=== PATIENT | male | born 1935 | race Caucasian/White ===

== ENCOUNTER 2016-07-30 16:04 | Inpatient (IN) | payer MEDICARE, OTHER ==
--- NOTE | ~2016-07-30 | EKG ---
PATIENT: BEAR PRUITT UNIT #: [id number] Ventricular Rate: 101 BPM Atrial Rate: 101 BPM P-R Interval: 202 ms QRS Duration: 62 ms Q-T Interval: 320 ms QTC Calculation(Bezet): 414 ms P [place]: 91 degrees Calculated R [place]: 70 degrees Calculated T [place]: 70 degrees Diagnosis Line: Sinus tachycardia with Premature atrial complexes Diagnosis Line: Nonspecific ST abnormality Diagnosis Line: Abnormal ECG Diagnosis Line: When compared with ECG of 31-JAN-2016 08:36, Diagnosis Line: Premature atrial complexes are now Present Diagnosis Line: MI interval has decreased Diagnosis Line: Confirmed by SANTANA GONZALEZ MD ([id number]) on 07/30/2016 Diagnosis Line: 11:07:12 PM INTERPRETING MD: LISA TINEO
--- NOTE | ~2016-07-30 | HP ---
Unit #: [id number] #: [id number] Patient: BEAR PRUITT [id number] [address] [place], [place] [address] [id number] I MR#: [id number] NAME: BEAR PRUITT. ROOM: 12594 Age: 81 Sex: M Admission Date: 07/30/2016 : 1935 Attending Physician: Adriana Dave M.D. Primary Care Physician: Grant Wright M.D. HISTORY AND PHYSICAL CHIEF COMPLAINT Short of air. HISTORY OF PRESENT ILLNESS The patient is an 81-year-old male with a past medical history of chronic respiratory failure, COPD, hypertension, hyperlipidemia, peripheral vascular disease, and GERD, who presented to the emergency department for evaluation of the above. The patient states that he has had a one-month history of increasing shortness of breath and productive cough. He denies any fever or chills and no chest pain. He has had decreased appetite. He reports loose stool within the past 24 hours but denies any abdominal pain and no vomiting. He states that he has gained around five pounds over the past two months. He states that he has not had good eating habits. He was started on chronic prednisone (10 mg daily) by Dr. Bass with Pain Management regarding his chronic back pain. Otherwise, there has been no change in his medications. Upon arrival in the emergency department, the patient's pulse and blood pressure were 106 and 128/85, respectively, and oxygen saturation 91% on three liters. Chest x-ray was done and showed nothing acute. He was given Solu-Medrol in the emergency department. He is being admitted to [facility] for evaluation and further treatment. PAST MEDICAL HISTORY 1. Admission to [facility] September 29, 2013, for abdominal pain. 2. Chronic obstructive pulmonary disease followed by Dr. Madrigal. 3. Chronic respiratory failure on two liters of oxygen per nasal cannula. 4. Hypertension. 5. Hyperlipidemia. 6. Peripheral vascular disease, status post lower extremity stenting. 7. Gastroesophageal reflux disease. 8. Echocardiogram August 11, 2013, was technically limited but showed an ejection fraction of 55% with septal dyskinesis, mild concentric left ventricular hypertrophy, mild mitral regurgitation, and mild to moderate tricuspid regurgitation. PAST SURGICAL HISTORY 1. Foot surgery. 2. Carpal tunnel surgery. 3. Back surgery. 4. ERCP. Unit #: [id number] #: [id number] Patient: BEAR PRUITT 5. Cholecystectomy. 6. Right inguinal hernia repair. 7. Lower extremity stent. SOCIAL HISTORY The patient lives with his . He quit smoking. There is no alcohol use. FAMILY HISTORY Hypertension. ALLERGIES No known allergies. HOME MEDICATIONS 1. Citalopram 40 mg daily. 2. Metformin 500 mg daily. 3. Prednisone 10 mg daily. 4. Tenormin 25 mg daily. 5. Plavix 75 mg daily. 6. Zestoretic 20/12.5 daily. 7. Remeron 15 mg at bedtime. 8. Omeprazole 40 mg daily. 9. Flomax 0.4 mg daily. 10. Nabumetone 1000 mg daily. 11. Symbicort 160/4.5 daily. 12. Ventolin q.4 hours p.r.n. 13. Hydrocodone and acetaminophen 10/325 at 4 times daily. REVIEW OF SYSTEMS A complete review of systems is negative except as indicated in the History of Present Illness. PHYSICAL EXAMINATION VITAL SIGNS: Temperature is 98.9, pulse 106, respirations 20, blood pressure 128/85, and oxygen saturation 91% on 3 liters. GENERAL: Patient is a very pleasant male who is awake, alert, and in no acute distress. HEENT: Head is atraumatic. Mucous membranes are moist. NECK: Supple. Trachea is midline. CARDIOVASCULAR: Regular rate and rhythm. LUNGS: Decreased breath sounds bilaterally with a few scattered expiratory wheezes. Breathing is not labored with conversation. ABDOMEN: Soft and nontender with bowel sounds present in all four quadrants. EXTREMITIES: Nontender with no pedal edema. NEUROLOGIC: Patient is awake and alert. He follows commands. PSYCHIATRIC: Mood and affect are normal. Patient is cooperative. SKIN: Skin of examined areas is warm and dry. DIAGNOSTIC STUDIES LABORATORY: Comprehensive metabolic panel notable for chloride of 99, glucose 192, and BUN and creatinine 26 and 1.5, respectively. Complete blood count notable for white blood cell count of 15.5 and hemoglobin and hematocrit 12.3 and 38.6, respectively. BNP is 133. Troponin is less than 0.05. Arterial blood gas shows a pH of 7.323, PCO2 of 63.2, and PO2 of 62 on 2 liters. Unit #: [id number] #: [id number] Patient: BEAR PRUITT IMAGING: Chest x-ray shows no acute abnormality. CARDIOLOGY: EKG shows sinus tachycardia with premature atrial complex at a rate of 101 beats per minute. ASSESSMENT The patient is an 81-year-old male with: 1. Acute on chronic respiratory failure. 2. Chronic obstructive pulmonary disease exacerbation. 3. Leukocytosis. The patient is on chronic prednisone for back pain as per Dr. Bass. 4. Acute kidney injury versus chronic kidney disease. The patient's creatinine was 1.3 on January 31, 2016. It is 1.5 today. It has been as high as 1.4 on July 30, 2013, and 1.4 on October 25, 2015. He is on several medications that could be contributing to acute kidney injury including metformin, Zestoretic, and nabumetone. 5. Hypertension. 6. Hyperlipidemia. 7. Peripheral vascular disease, status post lower extremity stenting. 8. Gastroesophageal reflux disease. 9. Former smoker. PLAN 1. Admit to intermediate level. 2. Healthy heart diet if passes bedside swallow. 3. Supplemental oxygen 2-4 liters to maintain saturations greater than 92%. 4. DuoNebs q.4 hours while awake and q.2 hours p.r.n. 5. Solu-Medrol 80 mg IV q.12 hours. 6. Mucinex 600 mg p.o. b.i.d. 7. Doxycycline 100 mg p.o. b.i.d. 8. Consult Dr. Madrigal regarding acute on chronic respiratory failure. 9. Blood cultures x2 for further evaluation of leukocytosis. 10. Urinalysis with culture and sensitivity. 11. Serial cardiac enzymes. 12. SCDs for DVT prophylaxis. 13. Protonix for GI prophylaxis since the patient will be on Solu-Medrol. 14. Hold medications which could be contributing to acute kidney injury. 15. Repeat labs in the morning. 16. Additional workup and consultants based on above. 1. Dictated by Adriana Dave M.D. AW/yasmeen TD: 07/30/2016 20:48 JOB #: [id number] Unit #: [id number] #: [id number] Patient: BEAR PRUITT HISTORY AND PHYSICAL Page 1 of 1 X Adriana Dave MD X HISTORY AND PHYSICAL
--- NOTE | ~2016-07-30 | CO ---
Unit #: [id number] #: [id number] Patient: BEAR PRUITT [id number] [facility] [address] [facility]. [place], [place] [address] [id number] I MR#: [id number] NAME: BEAR PRUITT. ROOM: 564 Age: 81 Sex: M Admission Date: 07/30/2016 : 1935 Attending Physician: Gabino Song M.D. Primary Care Physician: Grant Sevilla M.D. CONSULTATION REPORT JOB NOTE: CC: [facility], PRIMARY CARE PHYSICIAN (DR. GRANT SEVILLA) REASON FOR CONSULTATION Arrhythmia. HISTORY OF PRESENT ILLNESS This is an 81-year-old white male, who is known to Dr. Marsh, who has a history of hypertension, hyperlipidemia, and COPD, where he is on home oxygen. He had a cardiac catheterization in 01/2016, where he was found to have three-vessel nonobstructive coronary artery disease. He was continued on medical management. The patient presents to the emergency room because of worsening dyspnea. He says his dyspnea has worsened over the past 2 weeks to the point where he "could not breathe." He was admitted with COPD exacerbation and he has been on IV steroids. He was also in acute on chronic kidney injury that is improving. During the course of his stay, the patient had an episode of bradycardia, where his heart rate dropped as low as 30 beats per minute, followed by tachy rhythm with heart rate 130 beats per minute. The patient was unaware of palpitations. This episode occurred while sleeping. He has been told to have sleep apnea in the past, but could not wear CPAP. He is on a low-dose beta-stan. PAST MEDICAL HISTORY 1. 2D echocardiogram, 12/2015, shows an ejection fraction of 55% with mild tricuspid regurgitation. 2. Cardiac catheterization, 01/31/2016, per Dr. Holman at [facility] that revealed left main 30%, LAD mid vessel 50% to 60% stenosis. Left circumflex artery proximal 50% to 60%. First marginal branch had two areas of 50% to 60% stenosis. Right coronary artery distal vessel with 70% stenosis. Ejection fraction of 60%. 3. Hypertension. 4. Hyperlipidemia. 5. Peripheral vascular disease, status post peripheral stents. 6. GERD. 7. COPD, on home oxygen. 8. Obstructive sleep apnea, noncompliant with CPAP. 9. Former smoker. PAST SURGICAL HISTORY 1. Cataract extraction. 2. ERCP. 3. Back surgery x2. Unit #: [id number] #: [id number] Patient: BEAR PRUITT 4. Laser surgery for glaucoma. 5. Inguinal hernia repair. 6. Cholecystectomy. 7. Carpal tunnel surgery. SOCIAL HISTORY The patient is and retired. He quit smoking in 1994. No report of illicit drug or alcohol use. FAMILY HISTORY Negative for coronary artery disease. ALLERGIES No known drug allergies. HOME MEDICATIONS Citalopram 40 mg daily, metformin 500 mg daily, prednisone 10 mg daily, Tenormin 25 mg daily, Plavix 75 mg daily, Zestoretic 20/12.5 mg daily, Remeron 15 mg q.h.s., omeprazole 40 mg daily, Flomax 0.4 mg daily, nabumetone 1000 mg daily, Symbicort 160/4.5 mcg 1 puff daily, albuterol 1 puff q.4 hours p.r.n., hydrocodone/acetaminophen 10/325 q.i.d. REVIEW OF SYSTEMS CONSTITUTIONAL: Negative for fever or chills. Reports no weight gain or weight loss. HEENT: No headache. No vision changes or difficulty with swallowing. No dizziness. CARDIOVASCULAR: Has no symptoms of angina. Denies palpitations. No paroxysmal nocturnal dyspnea or orthopnea. Denies syncope or near syncope. RESPIRATORY: Positive for dyspnea at rest that is worse on exertion. Has a nonproductive cough. No hemoptysis. GASTROINTESTINAL: No abdominal pain, nausea, or vomiting. No constipation or melena. EXTREMITIES: Has occasional lower extremity edema. PHYSICAL EXAMINATION VITAL SIGNS: Blood pressure 122/57, heart rate 70, temperature 97.4, BMI 31. GENERAL: This is a pleasant 81-year-old elderly white male, who is in no acute respiratory distress. NEUROLOGIC: He is awake, alert, and oriented. There are no focal weaknesses. NECK: Trachea is midline. No thyromegaly or lymphadenopathy. No jugular venous distention. HEART: S1 and S2. Heart sounds are normal. No murmurs, rubs, or clicks. Regular rate and rhythm with occasional ectopic beat. ABDOMEN: Soft and nontender with bowel sounds are present. EXTREMITIES: Without leg edema. SKIN: Warm and dry. DIAGNOSIS STUDIES LABORATORY RESULTS: White count 10.9, hemoglobin 11.1, hematocrit 33.9, platelet count 207. Glucose 157, BUN 27, creatinine 1.0, sodium 139, potassium 4.8. Troponin less than 0.03 x2. BNP 133. IMAGING STUDIES: Chest x-ray shows no acute abnormality. CARDIOVASCULAR STUDIES: EKG; sinus tachycardia, rate of 101 beats per Unit #: [id number] #: [id number] Patient: BEAR PRUITT L minute with frequent premature atrial complexes. Rhythm strip shows tachy-shiloh. IMPRESSION 1. Acute exacerbation of chronic obstructive pulmonary disease. 2. Tachy-shiloh syndrome. 3. Hypertension. 4. Hyperlipidemia. 5. Preserved left ventricular systolic function, ejection fraction of 55% per echocardiogram in 2013. PLAN 1. Cardiology was consulted for bradycardia. The patient has episodes of bradycardic with heart rate as low as in the 30s, followed by tachycardia. His arrhythmias were noted during the hours of sleep. It could be associated with obstructive sleep apnea. However, he does have bradyarrhythmias during the daytime as well. 2. We will continue atenolol for now. 3. Continue to monitor rhythm. 4. TSH will be obtained. 5. No significant valvular heart disease per last echocardiogram. 6. We will follow the patient with you. Thank you for allowing us to assist in this patient's care. Dictated by... Bebeto Rivera/annel TD: 08/01/2016 05:41 JOB #: [id number] CONSULTATION REPORT Page 1 of 1 X Qasim Ohara APRN X CONSULTATION REPORT
--- NOTE | ~2016-07-30 | CO ---
Unit #: [id number] #: [id number] Patient: BEAR PRUITT 140068 [address] [address] [id number] I MR#: [id number] NAME: BEAR PRUITT. ROOM: 564 Age: 81 Sex: M Admission Date: 07/30/2016 : 1935 Attending Physician: Gabino Song M.D. Primary Care Physician: Grant Wrgiht M.D. Consultation Date: 07/31/2016 CONSULTATION REPORT REASON FOR CONSULTATION Shortness of breath. HISTORY OF PRESENT ILLNESS This is a well known, 81-year-old, male with a past medical history significant for chronic hypoxic respiratory failure, COPD, hypertension, hyperlipidemia, peripheral vascular disease and GERD, who presented to the emergency room for evaluation of shortness of breath. The patient stated that he has been progressively short of breath for the last few days. He was coughing but most of the time no sputum production. He had decreased oral intake and he also some loose stool for about one to two days. The patient was also hurting all over with muscle aches and his joints were bothering him. Upon arrival to the emergency room, his oxygen saturation was 91% on 3 L. Chest x-ray didn't show any acute infiltrate. PAST MEDICAL HISTORY 1. COPD. 2. Chronic hypoxic respiratory failure. 3. Hypertension. 4. Hyperlipidemia. 5. Peripheral vascular disease. 6. GERD. PAST SURGICAL HISTORY 1. Foot surgery. 2. Carpal tunnel surgery. 3. Back surgery. 4. ERCP. 5. Cholecystectomy. 6. Right inguinal hernia repair. 7. Lower extremity stent. SOCIAL HISTORY He patient lives with his . He quit smoking, no alcohol or drug abuse. FAMILY HISTORY Hypertension. ALLERGIES No known allergy. Unit #: [id number] #: [id number] Patient: BEAR PRUITT HOME MEDICATIONS 1. Citalopram. 2. Metformin. 3. Prednisone. 4. Tenormin. 5. Plavix. 6. Remeron. 7. Omeprazole. 8. Flomax. 9. Symbicort. 10. Ventolin. 11. Hydrocodone. REVIEW OF SYSTEMS Twelve point review of system were obtained and were negative except for what mentioned in the HPI. PHYSICAL EXAMINATION HEENT: Atraumatic and normocephalic. PERRLA, EOMI. NECK: Supple. No JVD, no lymphadenopathy. CHEST: Bilateral diffuse rhonchi and wheezing. HEART: S1, S2. No murmur, gallops or rubs. EXTREMITIES: No edema or cyanosis. SKIN: No rashes. [employer]PERATING ENGINEER: Awake, alert, oriented x3. No focal motor/sensory deficits. LABS AND OTHER TESTS LABORATORY: Creatinine 1.1, chloride 98, CO2 34, white blood count 10.9, hemoglobin 11.1. IMAGING: Chest x-ray - no acute infiltrate. ASSESSMENT 1. Acute on chronic hypoxic respiratory failure. 2. Acute exacerbation of COPD. 3. Hypertension. 4. Hyperlipidemia. 5. GERD. 6. Peripheral vascular disease. PLAN 1. Patient's oxygen will be titrated down to his baseline. 2. Will continue IV steroids, bronchodilator and doxycycline for five days. 3. Physical therapy to evaluate. 7. Blood pressure management. 8. DVT prophylaxis. Dictated by... Kindra Andino M.D. EA/enzo TD: 08/02/2016 08:14 JOB #: [id number] Unit #: [id number] #: [id number] Patient: BEAR PRUITT CONSULTATION REPORT Page 1 of 1 X KINDRA HARRIS MD CONSULTATION REPORT
--- NOTE | ~2016-07-30 | DS ---
Unit #: [id number] #: [id number] Patient: BEAR PRUITT [id number] [address] [address] [id number] I MR#: [id number] NAME: BEAR PRUITT ROOM: 564 Age: 81 Sex: M Admission Date: 07/30/2016 : 1935 Discharge Date: 08/01/2016 Attending Physician: Gabino Song M.D. Primary Care Physician: Grant Wright M.D. DISCHARGE SUMMARY ADMITTING DIAGNOSES 1. Shortness of breath. 2. Acute exacerbation of chronic obstructive pulmonary disease. 3. Tachybrady syndrome. 4. Hypertension. 5. Chronic obstructive pulmonary disease. CONSULTANTS 1. Dr. Ronald Andino. 2. Dr. Paz Marsh/Dr. Holman. HISTORY OF PRESENT ILLNESS The patient is an 81-year-old man with a past medical history of chronic respiratory failure, COPD, sleep apnea, hypertension, hyperlipidemia, peripheral vascular disease and GERD. Presented to the emergency room with the chief complaint of shortness of breath. HOSPITAL COURSE He was seen by pulmonary. Started on steroids, p.r.n. breathing treatments. He started to develop tachybrady syndrome. His heart rate dropped into the 30s while he sleeps. Cardiology saw the patient. They recommended no further intervention at this point. He is clinically doing better. Cardiology and pulmonary recommended for the patient to follow with them as outpatient. He is doing clinically better, and he will be discharged home. PHYSICAL EXAMINATION ON THE DAY OF DISCHARGE VITAL SIGNS: Temperature 97.6, pulse rate 90, respirations 18, blood pressure 139/60. GENERAL: The patient is alert and oriented x3, lying in bed, no acute distress. HEENT: Normocephalic, atraumatic. No icterus. PERRLA. Extraocular muscles are intact. NECK: Supple. No JVD. HEART: S1, S2. Irregular. CHEST: Bilateral equal air entry. Clear to auscultation. ABDOMEN: Soft, nontender. DISCHARGE MEDICATIONS 1. Medrol Dosepak take as instructed. 2. Zithromax 250 mg p.o. daily for 5 days. 3. Ventolin 1 puff q.4 p.r.n. shortness of breath. 4. Symbicort 160/4.5 mcg 1 puff daily. 5. Flomax 0.4 mg daily. Unit #: [id number] #: [id number] Patient: BEAR PRUITT 6. Lisinopril/HCTZ to resume home dosage. 7. Citalopram 40 mg daily. 8. Remeron 15 mg at bedtime. 9. Metformin 500 mg daily. 10. Atenolol 25 mg p.o. daily. 11. Humibid LA 600 mg b.i.d. 12. Aspirin 81 mg daily. 13. Hydrocodone/Tylenol p.r.n. 14. Plavix 75 mg daily. 15. Omeprazole 40 mg daily. FOLLOWUP He is instructed to follow with cardiology. He has an appointment on November 13 at 11 a.m. Also, follow with primary care in 1-2 weeks. DISCHARGE INSTRUCTIONS All the discharge instructions were explained in detail to the patient. NOTE: Total time spent in his care - 25 minutes. Dictated by... John Quintanilla/seferino TD: 08/03/2016 08:08 JOB #: [id number] DISCHARGE SUMMARY Page 1 of 1 X X DISCHARGE SUMMARY
--- NOTE | ~2016-07-30 | CR72 ---
[facility] A Service of [facility] RADIOLOGY TEXT RESULTS PATIENT: BEAR PRUITT LOCATION: [facility] 564-01 : 35 UNIT #: [id number] AGE: [address]: Gabino Song MD SEX: M ORDER DR: [id number] [facility] [address] [facility]. [place], [place] [address] [id number] MR#: [id number] Acc #: [id number] NAME: BEAR PRUITT. : 1935 SEX: M STUDY DATE/TIME: 07/30/2016 15:34 UNIT: CEDOF ROOM: 16228 STUDY DESCRIPTION: CR Chest Single View Portable Attending Physician: Adriana Dave M.D. Ordering Physician: Jamie Burns M.D. Primary Care Physician: Grant Wright M.D. MEDICAL IMAGING REPORT This report is preliminary unless electronic signature is present EXAM Portable chest HISTORY 81-year-old male, shortness of air x2 weeks, long-standing smoker for over 30 years. COMPARISON 02/09/2014. FINDINGS AP portable view of the chest demonstrates moderate lung volumes satisfactory technique. There is slight blunting the right CP angle which may represent a trace amount of right pleural effusion. Minimal left basilar atelectasis. Heart and mediastinum unremarkable, except for minimal aortic atherosclerotic changes. No focal airspace disease, consolidation or pneumothorax. IMPRESSION Slight blunting of the right CP angles suggests a trace amount of right pleural fluid, though this may represent just chronic pleural thickening as this does not appear significantly changed from the January 2014 study. Overall, no definite acute abnormality. Dictated by... Reinaldo Mendieta M.D. THIS IS AN ELECTRONICALLY VERIFIED REPORT Reinaldo Mendieta M.D. at 07/31/2016 10:59 PM SUJATHAS/jelly [facility] A Service of [facility] RADIOLOGY TEXT RESULTS PATIENT: BEAR PRUITT LOCATION: [facility] 564-01 : 35 UNIT #: [id number] AGE: [address]: Gabino Song MD SEX: M ORDER DR: TD: 07/30/2016 19:33 JOB #: [id number] MEDICAL IMAGING REPORT Page 1 of 1 COPY
[2016-07-30 15:19] LABS: BASOPHIL# 0.1 X10e3 (0-0.3); BASOPHIL% 0.5 % (0-2.5); EOSINOPHIL# 0.2 X10e3 (0-0.7); HEMATOCRIT 38.6 % (38.0-50.0); HEMOGLOBIN 12.3 gm/dL (13.0-16.0); LYMPHOCYTE# 1.9 X10e3 (1.0-3.5); LYMPHOCYTE% 12.5 % (17.0-45.0); MEAN CELL VOLUME 99.1 FL (83-96); MEAN CORPUSCULAR HEMOGLOBIN 31.4 PG (28-34); MEAN CORPUSCULAR HGB CONC 31.7 g/dL (30-36); MEAN PLATELET VOLUME 8.6 FL (6.5-11.5); MONOCYTE# 1.3 X10e3 (0-1.0); MONOCYTE% 8.2 % (3.0-12.0); NEUTROPHIL% 77.8 % (40-75); PLATELET COUNT 215 X10e3 (140-420); RED CELL DISTRIBUTION WIDTH 14.6 % (11.0-15.5); WHITE BLOOD COUNT 15.5 X10e3 (4.0-10.5)
[2016-07-30 15:22] LABS: DIFF IND YES
[2016-07-30 15:34] LABS: ALBUMIN SERUM 3.7 g/dL (3.5-5.0); BILIRUBIN, DIRECT 0.1 mg/dL (0.0-0.2); BILIRUBIN,INDIRECT 0.7 mg/dL (0.0-0.9); BILIRUBIN,TOTAL 0.8 mg/dL (0.2-2.0); BUN/CREATININE RATIO 17.33; CALCIUM SERUM 8.6 mg/dL (8.4-10.2); CREATININE SERUM 1.5 mg/dL (0.6-1.4); GLOM FILT RATE Estimated 43.1 mL/min (>60); POTASSIUM 4.6 mmol/L (3.5-5.1); PROTEIN TOTAL SERUM 7.4 g/dL (6.0-8.3)
[2016-07-30 16:03] LABS: ANISOCYTOSIS SL; PLATELET ESTIMATE NORMAL (NORMAL)
[~2016-07-30 16:04] MED LIST: ALBUTEROL17 GM INH; ASPIRIN EC81 M1 PO; ASPIRIN81 M2 PO; CARDURA PO; CELEBREX; CITALOPRAM HBR40 M1 PO; CLOPIDOGREL75 MG PO; COLACE PO; DARVOCET-N 1001 TAB; DESYREL150 M1 PO; GLUCOPHAGE500 M1 PO; HYDROCODON-ACE1 EAC5 PO; HYDROCODON-ACE1 EAC7 PO; HYDROCODON-ACE1 EAC9 PO; HYDROCODONE-APA1 T54 PO; KEFLEX; KEFLEX500 MG PO; LEVOFLOXACIN500 MG PO; LIPITOR; LIPITOR20 MG PO; LISINOPRIL; LISINOPRIL-HCTZ1 T14 PO; LISINOPRIL20 MG PO; MECLIZINE HCL12.5 MG PO; METOPROLOL TAR25 MG PO; METRONIDAZOLE PO; MILK OF MAGNESIA PO; NABUMETONE500 M1 PO; NABUMETONE500 MG PO; NORCO 7.5/325 T1 TAB PO; OXYGEN; PERCOCET5/325; PLAVIX PO; PRILOSEC PO; PRILOSEC40 MG PO; PROTONIX PO; RELAFEN500 MG PO; REMERON15 MG PO; ROLAIDS; SYMBICORT INH; TOPROL XL PO; TUMS500 MG PO; TYLENOL325 M1 PO; VIBRAMYCIN100 M1 PO; VITAMIN B 12 SUBQ; ZESTORETIC 20-1 EAC1 PO
[2016-07-30 16:14] LABS: POC - CKMB 2.6 ng/mL (0.0-7.9); POC - TROPONIN <0.05 ng/mL (<=0.05)
[2016-07-30 17:05] LABS: ARTERIAL BLD GAS O2 SATURATION 90.7 % (90.0-100.0); ARTERIAL BLOOD GAS CARBOXY HB 0.5 %sat (0.0-9.0); ARTERIAL BLOOD GAS HCO3 32.8 mmol/L; ARTERIAL BLOOD GAS MET HB 0.7 %sat (0.0-2.0); ARTERIAL BLOOD GAS pH 7.323 (7.350-7.450)
[2016-07-30 17:06] LABS: ARTERIAL BLOOD GAS ALLEN TEST NORMAL; ARTERIAL BLOOD GAS ART SITE RIGHT RADIAL; ARTERIAL BLOOD GAS DELIVERY NASAL CANNULA; ARTERIAL BLOOD GAS PCO2 63.2 mmHg (35.0-45.0); ARTERIAL DRAW? YES
[2016-07-30 17:25] LABS: POC - CKMB 1.2 ng/mL (0.0-7.9); POC - TROPONIN <0.05 ng/mL (<=0.05)
[2016-07-30] MEDS ORDERED: CITALOPRAM HBR40 M1 PO (17:34)
[2016-07-30] MEDS ORDERED: METFORMIN HCL500 M1 PO (17:34)
[2016-07-30] MEDS ORDERED: PREDNISONE10 MG PO (17:35)
[2016-07-30] MEDS ORDERED: TENORMIN25 MG PO (17:35)
[2016-07-30] MEDS ORDERED: ZESTORETIC (17:36)
[2016-07-30] MEDS ORDERED: CLOPIDOGREL75 MG PO (17:36)
[2016-07-30] MEDS ORDERED: OMEPRAZOLE40 M1 PO (17:37)
[2016-07-30] MEDS ORDERED: FLOMAX0.4 M1 PO (17:37)
[2016-07-30] MEDS ORDERED: REMERON15 MG PO (17:37)
[2016-07-30] MEDS ORDERED: SYMBICORT INH (17:38)
[2016-07-30] MEDS ORDERED: NABUMETONE500 MG PO (17:38)
[2016-07-30] MEDS ORDERED: ALBUTEROL17 GM INH (17:38)
[2016-07-30] MEDS ORDERED: HYDROCODON-ACE1 EAC5 PO (17:39)
[2016-07-30 20:11] LABS: BASOPHIL% 0.2 % (0-2.5); EOSINOPHIL% 0.1 % (0.0-7.0); HEMATOCRIT 36.4 % (38.0-50.0); HEMOGLOBIN 11.8 gm/dL (13.0-16.0); LYMPHOCYTE# 0.9 X10e3 (1.0-3.5); LYMPHOCYTE% 5.6 % (17.0-45.0); MEAN CELL VOLUME 98.3 FL (83-96); MEAN CORPUSCULAR HEMOGLOBIN 31.9 PG (28-34); MEAN CORPUSCULAR HGB CONC 32.4 g/dL (30-36); MEAN PLATELET VOLUME 8.8 FL (6.5-11.5); MONOCYTE# 0.3 X10e3 (0-1.0); MONOCYTE% 1.7 % (3.0-12.0); NEUTROPHIL# 14.1 X10e3 (1.5-7.1); NEUTROPHIL% 92.4 % (40-75); PLATELET COUNT 202 X10e3 (140-420); RED CELL DISTRIBUTION WIDTH 14.2 % (11.0-15.5); WHITE BLOOD COUNT 15.3 X10e3 (4.0-10.5)
[2016-07-30 20:13] LABS: DIFF IND NO
[2016-07-30 20:23] LABS: ALBUMIN SERUM 3.7 g/dL (3.5-5.0); BILIRUBIN,TOTAL 0.8 mg/dL (0.2-2.0); BUN/CREATININE RATIO 21.66; CALCIUM SERUM 8.3 mg/dL (8.4-10.2); CREATININE SERUM 1.2 mg/dL (0.6-1.4); GLOM FILT RATE Estimated 56.4 mL/min (>60); POTASSIUM 4.6 mmol/L (3.5-5.1); PROTEIN TOTAL SERUM 7.4 g/dL (6.0-8.3)
[2016-07-30 22:16] LABS: URINE SOURCE CLEAN CATCH
[2016-07-30 23:19] LABS: URINE APPEARANCE SL HAZY; URINE COLOR YELLOW
[2016-07-30 23:20] LABS: URINE BLOOD NEG (NEG); URINE GLUCOSE NORM (NEG); URINE ICTOTEST NEG (NEG); URINE KETONE NEG (NEG); URINE LEUKOCYTE ESTERASE NEG (NEG); URINE NITRATE NEG (NEG); URINE PROTEIN 1+ (NEG); URINE UROBILINOGEN NORM (NEG)
[2016-07-30 23:21] LABS: URINE BILIRUBIN NEG (NEG)
[2016-07-30 23:24] LABS: CULTURE INDICATED? NO; URBCS1 AUWI NEG /[HPF] (0-2); URINE BACTERIA AUWI NEG (NEGATIVE); URINE SQUAMOUS EPITHELIAL CELL FEW /[HPF]; UWBCS1 AUWI 0-2 (0-5)
[2016-07-31 00:54] LABS: CK TOTAL 53 IU/L (36-174)
[2016-07-31 06:11] LABS: HEMATOCRIT 33.9 % (38.0-50.0); HEMOGLOBIN 11.1 gm/dL (13.0-16.0); MEAN CELL VOLUME 97.7 FL (83-96); MEAN CORPUSCULAR HGB CONC 32.8 g/dL (30-36); RED BLOOD COUNT 3.47 X10e (3.90-5.60); RED CELL DISTRIBUTION WIDTH 14.2 % (11.0-15.5); WHITE BLOOD COUNT 10.9 X10e3 (4.0-10.5)
[2016-07-31 06:51] LABS: CK TOTAL 52 IU/L (36-174)
[2016-07-31 07:04] LABS: ALBUMIN SERUM 3.2 g/dL (3.5-5.0); BILIRUBIN,TOTAL 0.7 mg/dL (0.2-2.0); CALCIUM SERUM 9.4 mg/dL (8.4-10.2); GLOM FILT RATE Estimated 70.3 mL/min (>60); POTASSIUM 4.8 mmol/L (3.5-5.1); PROTEIN TOTAL SERUM 6.3 g/dL (6.0-8.3)
[2016-08-01 06:15] LABS: BUN/CREATININE RATIO 27.27; CALCIUM SERUM 9.3 mg/dL (8.4-10.2); CREATININE SERUM 1.1 mg/dL (0.6-1.4); GLOM FILT RATE Estimated 62.6 mL/min (>60); MAGNESIUM 1.7 mg/dL (1.6-3.0); POTASSIUM 4.5 mmol/L (3.5-5.1)
[2016-08-01] MEDS ORDERED: PREDNISONE10 MG PO (19:06)
[2016-08-01] MEDS ORDERED: ASPIRIN81 MG PO (19:08)
[2016-08-01] MEDS ORDERED: HUMIBID-LA600 MG PO (19:09)
[2016-08-01] MEDS ORDERED: AZITHROMYCIN250 MG PO (19:10)
== END 2016-08-01 20:17 | disposition home or self-care (01) | DRG 190 ==
LOC: CED 16:04 → CEDOF 19:25 → C5C 22:02
PROVIDERS: Emergency Medicine; Family Medicine; Nurse Practitioner
DX: J44.1 Chronic obstructive pulmonary disease with (acute) exacerbation (principal); J96.20 Acute and chronic respiratory failure, unspecified whether with hypoxia or hypercapnia; N17.9 Acute kidney failure, unspecified; I49.5 Sick sinus syndrome; Z99.81 Dependence on supplemental oxygen; E78.5 Hyperlipidemia, unspecified; J44.9 Chronic obstructive pulmonary disease, unspecified; I73.9 Peripheral vascular disease, unspecified; K21.9 Gastro-esophageal reflux disease without esophagitis; G47.33 Obstructive sleep apnea (adult) (pediatric); Z83.3 Family history of diabetes mellitus; Z95.828 Presence of other vascular implants and grafts; Z87.891 Personal history of nicotine dependence; Z98.49 Cataract extraction status, unspecified eye; Z90.49 Acquired absence of other specified parts of digestive tract; Z79.84 Long term (current) use of oral hypoglycemic drugs; Z79.02 Long term (current) use of antithrombotics/antiplatelets; Z79.52 Long term (current) use of systemic steroids; Z82.49 Family history of ischemic heart disease and other diseases of the circulatory system; I12.9 Hypertensive chronic kidney disease with stage 1 through stage 4 chronic kidney disease, or unspecified chronic kidney disease; N18.2 Chronic kidney disease, stage 2 (mild)
CPT/HCPCS: 36415; 36600; 71010; 80048; 80053; 80076; 81003; 82550; 82553; 82803; 82947; 83735; 83880; 84443; 84484; 85025; 85027; 87040; 93005; 94640; 94760; 96374; 96375; 97163; 99291; G8978-GP; G8979-GP; G8980-GP; J1650; J2270; J2405; J2920; J2930